=== PATIENT | male | born 1980 | race Caucasian/White ===

== ENCOUNTER 2023-12-07 10:10 | Emergency (ER) | payer BC, SELFPAY ==
[2023-12-07 10:57] VITALS: BMI 25.1
--- NOTE | 2023-12-07 11:37 | ED.GENMED ---
History of Present Illness
General
Chief Complaint: Back Pain
Source: patient
Exam Limitations: none
Time Seen by Provider: 12/07/23 11:26
Nursing documentation reviewed up to this point in time: agreed with
History of Present Illness
History of Present Illness:
42 yr old male presents today complaining low back pain. He reports around 9 AM he was lifting a 10 pound brick and felt sudden pain in his lower back. He did take Aleve or ibuprofen prior to arrival. He denies any radiation. Denies any
numbness tingling weakness in extremities. He complains of low back pain with movement.
Past History
Past History
ED Past Medical History: None
ED Past Surgical History: None
Review of Systems
Review of Systems
Allergies reviewed?: Yes
All Other Systems: ROS reviewed and negative except as documented in HPI and ROS
Constitutional: Reports no symptoms
Musculoskeletal: Reports back pain (low back pain )
Skin: Reports no symptoms
Neurological: Reports no symptoms
Psychiatric: Reports no symptoms
Phy Exam
General Physical Exam
General Presentation: no apparent distress
General age: appears stated age
General Skin: warm and dry
General Habitus: normal
General Mental: alert
General Hydration: appears well hydrated
Neurological Exam
Neurological Exam: alert, oriented x3 and other (Bilateral sensation to lower extremities normal dorsiflexion plantarflexion normal distal sensation)
Musculoskeletal Exam
Musculoskeletal Exam: other (Normal inspection to low back no tenderness)
Skin Exam
Skin Exam: normal color and warm/dry
Psychiatric Exam
Psychiatric Exam: normal mood/affect
Course
Orders/Labs/Results
Orders:
Orders
12/07/23 11:35
Acetaminophen [Tylenol] 1,000 mg PO NOW STA
diazePAM [Valium Injection] 5 mg IM NOW STA
12/07/23 11:36
Lidocaine [Lidocaine 4% Patch] 1 patch TOPICAL NOW STA
Apply Lidocaine patch(s) to:: lower back
12/07/23 11:38
Lumbar Spine Complete, 4 View [CR Lumbar Spine Comp Min 4 Vw*] Urgent
Comment:
Reason For Exam: pain after lifint brick
Vital Signs
Initial and Last Documented VS:
Initial Vital Signs
Temp Pulse Resp Pulse Ox
98.4 F 96 18 100
12/07/23 10:14 12/07/23 10:14 12/07/23 10:14 12/07/23 10:14
Last Documented Vital Signs
Temp Pulse Resp BP Pulse Ox
98.4 F 76 18 119/77 100
12/07/23 10:14 12/07/23 13:15 12/07/23 13:15 12/07/23 13:15 12/07/23 13:15
MDM/Problems Addressed
MDM/Problems Addressed:
patient's symptoms are consistent with muscle strain. No radicular symptoms no neurological deficits x-ray negative. Patient received here for management will DC with ibuprofen Tylenol Flexeril ice and heat
*Radiology
Radiology exam reviewed: radiology read reviewed
*Pulse Oximetry
Patient hypoxic: no
*Critical Care Note
Total Time (30-74mins, 75-104mins- exclusive of procedures): Not Applicable
ED Attending Note
-
Portions of this chart may have been created with voice recognition software.� Occasional wrong word or��sound alike� substitutions may have occurred due to the inherent limitations of voice recognition software.
Discharge Plan
Departure
Patient Disposition: Home (Routine Discharge)
Date of Disposition: 12/07/23
Time of Disposition: 13:10
Patient with high blood pressure during this ER visit?: No
Condition: Fair
Covid-19: Not Applicable
Discharge Problem:
Lumbar strain
Instructions: Back Muscle Strain (DC)
Prescriptions:
New
cyclobenzaprine 10 mg tablet
10 mg PO TID PRN (Reason: pain) Qty: 10 0RF
No Action
prednisone 10 MG tablet
10 mg PO .TAPER Qty: 30 0RF
Rx Instructions:
Take 40mg daily x3days, 30mg daily x3days,
20mg daily x3days, 10mg daily x3days.
diazepam 5 MG tablet
5 mg PO TIDPRN PRN (Reason: spasm) Qty: 12 0RF
Referrals:
NONE,* [Family Provider] -
Activity Restrictions/Additional Instructions:
As discussed ice affected area for 24 hours 20 minutes at a time several times a day. Ibuprofen 600 mg every 8 hours with food and you may alternate with Tylenol. You may take a prescription, muscle relaxer as discussed this medication was sent
to your pharmacy. No driving or drinking alcohol taking this medication. Follow-up with family doctor next 2 days for reevaluation return if any worsening of symptoms.
Interventions
Interventions:
*Risk Screen - Suicide Last Done: 12/07/23 10:14
*General Assessment Last Done: 12/07/23 10:14
*Neglect/Abuse Screening Last Done: 12/07/23 10:57
ED- Fall Risk Assessment Last Done: 12/07/23 10:57
*ED COVID-19 Vaccine History Last Done: 12/07/23 10:14
ED-Musculoskeletal Assessment Last Done: 12/07/23 10:57
Discharge Date and Time
Print Language: MOROCCAN
[2023-12-07] MEDS: TYLENOL 1000 MG PO (11:56)
[2023-12-07] MEDS: LIDOCAINE 4% PATCH 1 PATCH TOPICAL (11:57)
[2023-12-07] MEDS: VALIUM INJECTION 5 MG IM (11:58)
[2023-12-07 13:15] VITALS: BP 119/77
== END 2023-12-07 13:23 | disposition home or self-care (01) ==
LOC: EMR 10:10
PROVIDERS: EMERGENCY PHYSICIAN Emergency Medicine
DX: S39.012A Strain of muscle, fascia and tendon of lower back, initial encounter (principal); X50.0XXA Overexertion from strenuous movement or load, initial encounter; E78.5 Hyperlipidemia, unspecified
CPT/HCPCS: 99284; 96372; 72110

== ENCOUNTER 2024-12-28 11:38 | Emergency (ER) | payer BC, SELFPAY ==
[2024-12-28 11:41] VITALS: BP 137/81
--- NOTE | 2024-12-28 13:21 | ED.GENMED ---
History of Present Illness
General
Chief Complaint: Foreign Body Ingestion
Time Seen by Provider: 12/28/24 11:52
History of Present Illness
History of Present Illness:
44-year-old male without significant past medical history presenting to the emergency department after concern of ingestion of a piece of dental equipment. Patient was at the dentist prior to arrival. He was getting a tooth extracted and during
the procedure he felt like he swallowed something. At the time did not notice that he had swallowed anything, however upon leaving did not mention that they believe that he swallowed a dental bur. He was told to come to the hospital for imaging.
He denies any acute medical complaint such as difficulty breathing or abdominal pain. Denies additional acute medical complaints
Past History
Past History
ED Past Medical History: None
ED Past Surgical History: None
Phy Exam
Physical Exam
Physical Exam:
General: Well-appearing, no clinical signs of dehydration, nontoxic and in no acute distress
HEENT: protecting airway
Neck: appears supple
CV: Normal heart rate, regular rhythm
Resp: No accessory muscle use, no increased work of breathing, lungs clear to auscultation bilaterally
Abd: No distention
Extremities: No deformities, no swelling, no erythema, pulses and sensation intact
Neuro: alert, no focal neurologic deficit
: deferred
Rectal: deferred
Psych: Normal affect
Skin: Intact
Course
Orders/Labs/Results
Orders:
Orders
12/28/24 11:56
Abdominal Series [CR Obstruct Series W/pa Chest] Urgent
Comment:
Reason For Exam: swallowed FB at dentist
Vital Signs
Initial and Last Documented VS:
Initial Vital Signs
Temp Pulse Resp BP Pulse Ox
98.2 F 92 16 137/81 98
12/28/24 11:41 12/28/24 11:41 12/28/24 11:41 12/28/24 11:41 12/28/24 11:41
Last Documented Vital Signs
Temp Pulse Resp BP Pulse Ox
98.2 F 92 16 137/81 98
12/28/24 11:41 12/28/24 11:41 12/28/24 11:41 12/28/24 11:41 12/28/24 13:21
MDM/Problems Addressed
MDM/Problems Addressed:
44-year-old male presenting to the emergency department after concern of ingestion of a piece of dental equipment. Vital signs are normal.
On exam patient is resting comfortably, no acute distress, no discomfort. Will obtain x-ray imaging of the chest and abdomen to evaluate where the piece of equipment could be.
13:40 - Piece of equipment appears to be in the abdomen, likely in the small bowel given appearance on x-ray. Did discuss with dentist, notes that it is a dental bur, which is not sharp in quality. In discussion with both GI and dental, likely too
far for EGD. Will give trial of passage. Recommendation is for repeat x-ray in 3 days. Did discuss with patient. Return precautions discussed and patient verbalized understanding
*Pulse Oximetry
SaO2: 98
Oxygen Mode of Delivery: Room air
Patient hypoxic: no
*Critical Care Note
Total Time (30-74mins, 75-104mins- exclusive of procedures): Not Applicable
ED Attending Note
-
Portions of this chart may have been created with voice recognition software.� Occasional wrong word or��sound alike� substitutions may have occurred due to the inherent limitations of voice recognition software.
Discharge Plan
Departure
Patient Disposition: Home (Routine Discharge)
Date of Disposition: 12/28/24
Time of Disposition: 13:49
Patient with high blood pressure during this ER visit?: No
Condition: Good
Discharge Problem:
Foreign body in intestine
Instructions: Swallowed Objects, Adult (DC)
Prescriptions:
No Action
prednisone 10 MG tablet
10 mg PO .TAPER Qty: 30 0RF
Rx Instructions:
Take 40mg daily x3days, 30mg daily x3days,
20mg daily x3days, 10mg daily x3days.
diazepam 5 MG tablet
5 mg PO TIDPRN PRN (Reason: spasm) Qty: 12 0RF
cyclobenzaprine 10 mg tablet
10 mg PO TID PRN (Reason: pain) Qty: 10 0RF
Referrals:
Reji Vargas MD [Family Provider, Internal Medicine]
Activity Restrictions/Additional Instructions:
You were seen in the emergency department for ingested foreign body
You were found to have a foreign body in your intestines. In discussion with the gastrointestinal doctor and your dentist, we suspect that it will pass on its own. You will need to get a repeat x-ray in 3 days.
Please follow-up closely with your primary care physician.
Return to the emergency department for any worsening of your symptoms, or any development of chest pain, difficulty breathing, abdominal pain with persistent vomiting and inability to tolerate food or liquid by mouth (concern for dehydration),
weakness, headache or confusion, fever greater than 100.4, or any additional symptoms that are concerning to you.
Thank you for choosing [facility].
Interventions
Interventions:
*Risk Screen - Suicide Last Done: 12/28/24 11:43
*Neglect/Abuse Screening Last Done: 12/28/24 11:43
*Nursing Disposition Last Done: 12/28/24 14:08
ED- Pulmonary Assessment Last Done: 12/28/24 12:11
ED-EENT Assessment Last Done: 12/28/24 12:11
Discharge Date and Time
Print Language: PERSIAN
== END 2024-12-28 14:14 | disposition home or self-care (01) ==
LOC: EMR 11:38
PROVIDERS: EMERGENCY PHYSICIAN Student in an Organized Health Care Education/Training Program; FAMILY PHYSICIAN Internal Medicine
DX: T18.9XXA Foreign body of alimentary tract, part unspecified, initial encounter (principal); W44.8XXA Other foreign body entering into or through a natural orifice, initial encounter; Y92.538 Other ambulatory health services establishments as the place of occurrence of the external cause
CPT/HCPCS: 99283; 74022

== ENCOUNTER → 2024-12-31 16:28 | Outpatient (REF) | payer BC, SELFPAY | LOC: RAD 16:28 | PROVIDERS: ATTENDING PHYSICIAN Physician Assistant | DX: T18.9XXA Foreign body of alimentary tract, part unspecified, initial encounter (principal) | CPT/HCPCS: 74019 ==